=== PATIENT | male | born 1990 | race Caucasian/White ===

== ENCOUNTER 2020-04-26 10:08 | Emergency (ER) | payer MEDICAID ==
[~2020-04-26] VITALS: Ht 170.2 cm; Wt 82.3 kg
[2020-04-26 10:12] VITALS: BP 120/77
[2020-04-26] MEDS ORDERED: LIDOCAINE-MPF 1%, 5ML ONE (10:41)
[2020-04-26] MEDS ORDERED: BENZOCAINE 20% SPRAY 0.5ML ONE (10:41)
--- NOTE | 2020-04-26 10:56 | NUR ---
I/D SUPPLIES GATHERED FOR PROVIDER TO [facility] DENTAL ABSCESS (INCLUDING LIDOCAINE AND HURRICAINE SPRAY)
[2020-04-26] MEDS ORDERED: BENZOCAINE 20% SPRAY 0.5ML TP ONE (11:00)
[2020-04-26] MEDS ORDERED: LIDOCAINE-MPF 1%, 5ML INFIL ONE (11:00)
[2020-04-26] MEDS ORDERED: HYDROcodone/APAP 5/325 TABLET ONE ×2 (11:45→11:55)
[2020-04-26] MEDS ORDERED: HYDROcodone/APAP 5/325 TABLET PO ONE (12:00)
--- NOTE | 2020-04-26 12:01 | NUR ---
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
== END 2020-04-26 12:04 | disposition home or self-care (01) ==
LOC: ED 11:46
DX: K04.6 Periapical abscess with sinus (principal); K08.89 Other specified disorders of teeth and supporting structures
CPT/HCPCS: 41800; 99284